=== PATIENT | female | born 1955 | race Caucasian/White ===

== ENCOUNTER 2018-03-10 15:34 | Observation (INO) ==
--- NOTE | 2018-03-10 15:36 | Emergency Department Note ---
ED Disposition Clinical Impression: Chest pain Qualifiers: Chest pain type: precordial pain Qualified Code(s): R07.2 - Precordial pain Disposition: Still a Patient Condition on Discharge: Good Referrals: Peewee Pink MD [Primary Care Provider] - - Critical Care Critical Care Time: No Attestation: On , the high probability of a clinically significant, sudden or life threatening deterioration of the following system(s) required my full and direct attention, intervention and personal management. The time I documented below is in addition to time spent performing reported procedures but includes the following listed in this critical care notation. Medical Decision Making - Francis Inquiry Pt receiving controlled substance: No Vital Signs: 03/10/18 15:34 Temperature 98.4 F Temperature Source Oral Pulse Rate [Left Radial] 67 Respiratory Rate 20 Blood Pressure [Right Arm] 99/55 Blood Pressure Mean [Right Arm] 69 Blood Pressure Source [Right Arm] Automatic Cuff Blood Pressure Position [Right Arm] Sitting 02 Sat by Pulse Oximetry 96 Oxygen Delivery Method Room Air - Lab Data Lab Results 03/10/18 15:49: WBC 6.8, RBC 4.47, Hgb 13.7, Hct 42.1, MCV 94.0, MCH 30.7, MCHC 32.6, RDW 12.9, Plt Count 320, MPV 8.1, Neut % (Auto) 46.4, Lymph % (Auto) 44.6 , [place] % (Auto) 6.8, Eos % (Auto) 1.4, Baso % (Auto) 0.8, Neut # (Auto) 3.2, Lymph # (Auto) 3.0, [place] # (Auto) 0.5, Eos # (Auto) 0.1, Baso # (Auto) 0.1 03/10/18 15:49: Sodium 144, Potassium 3.3 L, Chloride 106, Carbon Dioxide 29, Anion Gap 12.3, BUN 14, Creatinine 0.73, Estimated Creat Clear 68, Estimated GFR 81, Est GFR ( Amer) 97, Glucose 94, Calcium 8.9, Total Bilirubin 0.1 L, AST 42 H, ALT 29, Alkaline Phosphatase 98, Total Protein 7.0, Albumin 3.5, Globulin 3.5 H, Albumin/Globulin Ratio 1.0 L 03/10/18 15:49: Total Creatine Kinase 67, CK-MB (CK-2) < 0.5, CK-MB (CK-2) Rel Index 0.7, Troponin I < 0.02 03/10/18 15:49: D-Dimer < 100 Result diagrams: 03/10/18 15:49 03/10/18 15:49 - Radiology Data #1 Image(s): Chest Image Reviewed: Yes I have reviewed radiologist's interpretation COPD, no change, no acute findings - ECG Data Tracing #1 EKG interpreted by García West MD: Rhythm: sinus Rate: 70 [place]: normal Ectopy: none Conduction: normal ST Segment Changes: none T Wave Changes: none Q Waves: none No evidence of acute ischemia or injury Medical Decision Narrative: 5:25 PM: Discussed with Dr. Dubois. 5:40 PM: Remains pain-free. 5:50 PM: I have discussed the case with Dr. Lim for Dr. Pink who agrees to admit the patient to the hospital. We discussed the patient's clinical information, including history, exam, laboratory and radiology results and ED course. Per hospital procedure, I will write temporary bridge inpatient orders on the patient. Specific orders requested by the admitting physician: Admit to his service, Dr. Pink is out of town. Serial cardiac enzymes. Consult Dr. Dubois. General Adult HPI - General Stated complaint: Chest pain Time Seen by Provider: 03/10/18 16:00 - History of Present Illness HPI narrative: The patient is brought in by EMS for chest pain. She says that she was sitting in a vehicle waiting for her grandchild to get out of school when she developed chest pain in the center of her chest that radiated in a circular fashion around to her back. She says that it hurt when she tried to take a deep breath. She was not actually short of air. She was not nauseated, but was diaphoretic. The pain worsened and became 10/10. 911 was called. She said she was given aspirin and nitroglycerin. Nitroglycerin took her pain to 2/10 and now her pain is essentially gone. No previous or pain. She does not have any known heart disease. No known family history of heart disease. The patient is a smoker. She does not have hypertension, diabetes, or hyperlipidemia. Prior history of a blood clot in her leg after she had intestinal surgery 5 years ago. She says they "dissolved it in the hospital" and she did not have to take blood thinners afterwards. At that time she discovered that she was factor V Leiden. She says that she has not had a blood clot since then. - Related Data Home Medications Medication Instructions Recorded Confirmed raNITIdine HCl [Acid Director Title] 0 mg PO DAILY 03/10/18 03/10/18 Allergies Allergy/AdvReac Type Severity Reaction Status Date / Time codeine [CODEINE] Allergy Unknown NA-NAUSEA Verified 03/10/18 15:48 diphenhydramine Allergy Unknown MAKES CRAZY Verified 03/10/18 15:48 [From BENADRYL] [facility] History I have reviewed the patient's past medical history: Yes ROS Obtained: Yes All systems reviewed & no additional complaints - Constitutional Constitutional: Denies fever(s) - Cardiovascular Cardiovascular: Reports chest pain, Denies leg edema - Respiratory Respiratory: No cough, No dyspnea, No coughing up blood, Yes pain on inspiration - Gastrointestinal Gastrointestingal: Denies: abdominal pain, nausea, vomiting - Neurologic Neurologic: Denies numbness, Denies weakness Physical Exam - General General appearance: alert, in no apparent distress - Head Head exam: atraumatic, normocephalic, normal inspection - Eye Eye exam: Present: normal appearance, PERRL, EOMI - ENT ENT exam: Present: normal exam, normal oropharynx, mucous membranes moist, TM's normal bilaterally, normal external ear exam - Neck Neck exam: Present: normal inspection, full ROM, trachea midline. Absent: meningismus, lymphadenopathy - Chest Chest inspection: Present: normal inspection, symmetric chest wall rise. Absent : tenderness - Respiratory Respiratory exam: Present: normal lung sounds bilaterally. Absent: respiratory distress - Cardiovascular Cardiovascular exam: Present: regular rate, normal rhythm. Absent: JVD - Abdominal Exam Abdominal exam: Present: soft, normal bowel sounds. Absent: distention, tenderness, guarding - Extremities Exam Extremities exam: Present: normal inspection, full ROM, normal capillary refill. Absent: calf tenderness - Back Exam Back exam: Present: normal inspection. Absent: tenderness - Neurological Exam Neurological exam: Present: alert, oriented X3 - Psychiatric Psychiatric exam: Present: normal affect, normal mood - Skin Skin exam: Present: warm, dry, intact, normal color - Other Other exam information: Pulses 2+ and symmetric in all extremities
[2018-03-10 16:01] LABS: Basophils # 0.1 K/mm3 (0-0.2); Basophils % 0.8 % (0.1-2.0); Eosinophils # 0.1 K/mm3 (0.0-0.4); Eosinophils % 1.4 % (0.1-12.0); Hematocrit 42.1 % (37.0-47.0); Hemoglobin 13.7 g/dL (12.2-16.2); Lymphocytes % 44.6 K/mm3 (10-50); Mean Corpuscular HGB Conc 32.6 g/dL (31.8-35.4); Mean Corpuscular Hemoglobin 30.7 pg (27.0-31.2); Mean Platelet Volume 8.1 fl (7.4-10.4); Monocytes # 0.5 K/mm3 (0.1-1.0); Monocytes % 6.8 % (1.7-9.3); Neutrophils # 3.2 K/mm3 (1.8-7.8); Neutrophils % 46.4 % (37.0-80.0); Platelet Count 320 K/mm3 (142-424); Red Blood Count 4.47 M/mm3 (4.20-5.40); Red Cell Distribution Width 12.9 % (11.5-17.5); White Blood Count 6.8 K/mm3 (4.8-10.8)
[2018-03-10 16:14] LABS: Albumin Level 3.5 gm/dL (3.4-5.0); Anion Gap 12.3 mEq/L (5-15); Bilirubin,Total 0.1 mg/dL (0.2-1.0); Calcium 8.9 mg/dL (8.5-10.1); Globulin 3.5 gm/dl (1.3-3.2); Potassium 3.3 mmoL/L (3.5-5.1)
[2018-03-10 17:34] LABS: Creatine Kinase 67 U/L (26-192)
--- NOTE | 2018-03-11 07:27 | Pharmacy Consult Notes ---
[facility] Pharmacy VTE Monitoring - Patient Demographics Admission date: 03/10/18 Report Date: 03/11/18 Time: 07:27 Allergies/Adverse Reactions: Patient Allergies codeine [CODEINE] Allergy (Unknown, Verified 03/10/18 15:48) NA-NAUSEA diphenhydramine [From BENADRYL] Allergy (Unknown, Verified 03/10/18 15:48) MAKES CRAZY Height: 1.68 m Weight: 71.923 kg Patient Problems: Current Active Problems Chest pain (Acute) - VTE Risk Labs: VTE Related Lab Results Hgb 13.7 g/dL (12.2-16.2) 03/10/18 15:49 Hct 42.1 % (37.0-47.0) 03/10/18 15:49 Plt Count 320 K/mm3 (142-424) 03/10/18 15:49 BUN 14 mg/dL (7-18) 03/10/18 15:49 Creatinine 0.73 mg/dL (0.55-1.02) 03/10/18 15:49 Estimated Creat Clear 68 mL/min (0-300) 03/10/18 15:49 Was VTE Risk Assessment Performed: Yes VTE Score: 0 VTE Risk Level: Very Low Risk - Prophylaxis VTE Prophylaxis Ordered?: Yes Types of VTE Prophylaxis: TEDS Knee High Location of Applied Device: Bilateral Lower Extremeties - VTE Diagnosis Confirmed Treatment or plan recommended: Continue Current Treatment
--- NOTE | 2018-03-11 07:59 | Consult Report ---
History of Present Illness Consult date: 03/11/18 Requesting physician: Peewee Pink Consult reason: chest pain Chief complaint: Chest pain Additional Medical History:: 1. Tobacco use, 1 pack per day for many years 2. Denies hypertension, hyperlipidemia, diabetes mellitus or family history of heart disease. 3. History of reflux for which patient takes prescription Zantac daily. History of present illness: 63-year-old white female admitted through the emergency department for sudden onset of substernal chest discomfort yesterday while awaiting at her granddaughter's school to pick her up. Patient had associated shortness of breath nausea and diaphoresis. She denies any vomiting. She denies any recent exertional chest pain or shortness of breath. EMS was activated to transport the patient to the hospital. Symptoms had started to improve by the time EMS arrived and continued to improve over the next several hours with flatus noted. Patient was given a sublingual nitroglycerin in the ambulance but does not feel that this helped with resolution of symptoms. Cardiac enzymes remain normal overnight. EKG is sinus and unremarkable with no evidence of acute coronary syndrome. Cardiology consulted for evaluation recommendations. Patient does relate having a stress test about 6 years ago was unable to walk adequately to achieve target heart rate. [facility] History Medical History: Reports:: Gastroesophageal Reflux Disease(GERD) Laterality Cases: Bilateral: Tonsillectomy Other Surgeries: Yes: Appendectomy, Cholecystectomy, , Hysterectomy- Total - *Social History Educational Level: Completed College Smoking Status: Current every day smoker # Packs/Day (cigarettes): 1 Alcohol Intake: never Occupational Status: employed Housing: house - Psychiatric History Expresses thoughts of harming self/others: None Suicide Plan Description: No Plan Meds Home Medications Medication Instructions Recorded Confirmed Type raNITIdine HCl [Ranitidine HCl] 150 mg PO BID 03/11/18 03/11/18 History Allergies Allergy/AdvReac Type Severity Reaction Status Date / Time codeine [CODEINE] Allergy Unknown NA-NAUSEA Verified 03/10/18 15:48 diphenhydramine Allergy Unknown MAKES CRAZY Verified 03/10/18 15:48 [From BENADRYL] Review of Systems - *Cardiovascular Reports chest pain - *Respiratory Reports shortness of breath - *Gastrointestinal Reports abdominal pain - *Neurologic Denies numbness, Denies weakness Exam Vital signs and Labs for Last 24 Hours: Temp Pulse Resp BP Pulse Ox 98.3 F 71 18 135/78 97 03/11/18 07:55 03/11/18 07:55 03/11/18 07:55 03/11/18 07:55 03/11/18 07:55 Laboratory Results - last 24 hr 03/10/18 15:49: WBC 6.8, RBC 4.47, Hgb 13.7, Hct 42.1, MCV 94.0, MCH 30.7, MCHC 32.6, RDW 12.9, Plt Count 320, MPV 8.1, Neut % (Auto) 46.4, Lymph % (Auto) 44.6 , [place] % (Auto) 6.8, Eos % (Auto) 1.4, Baso % (Auto) 0.8, Neut # (Auto) 3.2, Lymph # (Auto) 3.0, [place] # (Auto) 0.5, Eos # (Auto) 0.1, Baso # (Auto) 0.1 03/10/18 15:49: Sodium 144, Potassium 3.3 L, Chloride 106, Carbon Dioxide 29, Anion Gap 12.3, BUN 14, Creatinine 0.73, Estimated Creat Clear 68, Estimated GFR 81, Est GFR ( Amer) 97, Glucose 94, Calcium 8.9, Total Bilirubin 0.1 L, AST 42 H, ALT 29, Alkaline Phosphatase 98, Total Protein 7.0, Albumin 3.5, Globulin 3.5 H, Albumin/Globulin Ratio 1.0 L 03/10/18 15:49: Total Creatine Kinase 67, CK-MB (CK-2) < 0.5, CK-MB (CK-2) Rel Index 0.7, Troponin I < 0.02 03/10/18 15:49: D-Dimer < 100 03/10/18 19:50: Troponin I < 0.02 03/10/18 22:36: Troponin I < 0.02 03/11/18 01:25: Troponin I < 0.02 I & O for Last 24 hours: Intake & Output 03/08/18 03/09/18 03/10/18 03/11/18 11:59 11:59 11:59 11:59 Intake Total Balance Weight 158 lb 9 oz - *Routine Neck Exam Absent: JVD, carotid bruit - *Routine Respiratory Exam Present: CTA bilaterally - *Routine Cardiovascular Exam Present: RRR. Absent: murmur, gallop - *Routine Abdominal Exam Present: soft. Absent: tenderness - *Routine Extremities Exam Absent: edema - *Routine Neurological Exam Present: alert, oriented X3, moving all extremities Assessment and Plan (1) Gastroesophageal reflux disease Current visit: Yes Status: Acute Category: Medical Code(s): K21.9 - Gastro -esophageal reflux disease without esophagitis (2) Chest pain Current visit: Yes Status: Acute Qualifiers: Chest pain type: precordial pain Qualified Code(s): R07.2 - Precordial pain Category: Medical Code(s): R07.9 - Chest pain, unspecified - Assessment and plan all Dx Assessment and Plan for all problems:: 1. No evidence of acute coronary syndrome by enzymes or EKG. Patient is requesting to be discharged home for outpatient workup. Recommend taking aspirin 81 mg daily and patient exercise Myoview or Lexiscan Myoview. If patient is unable to walk adequately. 2. Continue ranitidine. 3. Follow-up with cardiology as needed. 4. Smoking cessation encouraged.
--- NOTE | 2018-03-11 08:27 | H&P/Discharge Summary ---
General - General Admission date:: 03/10/18 Discharge date: 03/11/18 *Admission Date: 03/10/18 *Chief complaint: CP *History of present illness: Ms. Presley is a 63-year-old white female who was admitted through the emergency department for a sudden onset of substernal chest pain yesterday while waiting to pick up attendant her granddaughter at school. She had some shortness of breath, nausea, and diaphoresis. She states it felt like someone put a band around her waist. She denies any vomiting. She denies any recent exertional chest pain or shortness of breath. She was unable to drive to the ER d/t the pain so EMS was activated to transport the patient to the hospital. Symptoms had started to improve by the time EMS arrived and continued to improve over the next several hours. Patient was given a sublingual nitroglycerin in the ambulance but does not feel that this helped with resolution of symptoms. She states it only gave her a headache. She feels the pain was d/t gas as she has passed a lot of flatus since admission. Cardiac enzymes have remained normal overnight. EKG was unremarkable with no evidence of acute coronary syndrome. Cardiology was consulted for evaluation recommendations. The patient does state she had a stress test about 6 years ago and was unable to walk adequately to achieve target heart rate. [facility] History Medical History: Reports:: Cancer (cervical), Chronic Obstructive Pulmonary Disease (COPD), Gastroesophageal Reflux Disease(GERD) Comment: Factor V Leiden with post op DVT of the RLE Sep 2012, Vitamin D Deficiency Laterality Cases: Bilateral: Tonsillectomy Other Surgeries: Yes: Appendectomy, Cholecystectomy, , Hysterectomy- Total - *Social History Educational Level: Completed College Smoking Status: Former smoker # Packs/Day (cigarettes): 1 Alcohol Intake: never Occupational Status: employed Housing: house - Psychiatric History Expresses thoughts of harming self/others: None Suicide Plan Description: No Plan *Family Hx:: Cancer (melanoma), Hypertension Review of Systems - Constitutional Denies body ache(s), Denies chills, Denies fever(s), Denies headache(s) - Eyes Denies blurry vision, Denies double vision - ENT Denies nasal congestion, Denies sore throat - *Cardiovascular Reports chest pain (resolved), Reports shortness of breath (resolved) - *Respiratory Denies cough - *Gastrointestinal Reports belching, Reports bloating, Reports nausea, Denies abdominal pain, Denies vomiting - *Genitourinary Denies difficulty urinating, Denies painful urination - *Musculoskeletal Denies joint pain, Denies body aches - *Neurologic Denies numbness, Denies dizziness, Denies weakness Exam Vital signs and Labs for Last 24 Hours: Temp Pulse Resp BP Pulse Ox 98.3 F 71 18 135/78 97 03/11/18 07:55 03/11/18 07:55 03/11/18 07:55 03/11/18 07:55 03/11/18 07:55 Laboratory Results - last 24 hr 03/10/18 15:49: WBC 6.8, RBC 4.47, Hgb 13.7, Hct 42.1, MCV 94.0, MCH 30.7, MCHC 32.6, RDW 12.9, Plt Count 320, MPV 8.1, Neut % (Auto) 46.4, Lymph % (Auto) 44.6 , [place] % (Auto) 6.8, Eos % (Auto) 1.4, Baso % (Auto) 0.8, Neut # (Auto) 3.2, Lymph # (Auto) 3.0, [place] # (Auto) 0.5, Eos # (Auto) 0.1, Baso # (Auto) 0.1 03/10/18 15:49: Sodium 144, Potassium 3.3 L, Chloride 106, Carbon Dioxide 29, Anion Gap 12.3, BUN 14, Creatinine 0.73, Estimated Creat Clear 68, Estimated GFR 81, Est GFR ( Amer) 97, Glucose 94, Calcium 8.9, Total Bilirubin 0.1 L, AST 42 H, ALT 29, Alkaline Phosphatase 98, Total Protein 7.0, Albumin 3.5, Globulin 3.5 H, Albumin/Globulin Ratio 1.0 L 03/10/18 15:49: Total Creatine Kinase 67, CK-MB (CK-2) < 0.5, CK-MB (CK-2) Rel Index 0.7, Troponin I < 0.02 03/10/18 15:49: D-Dimer < 100 03/10/18 19:50: Troponin I < 0.02 03/10/18 22:36: Troponin I < 0.02 03/11/18 01:25: Troponin I < 0.02 I & O for Last 24 hours: Intake & Output 03/08/18 03/09/18 03/10/18 03/11/18 11:59 11:59 11:59 11:59 Intake Total Balance Weight 158 lb 9 oz - Constitutional no acute distress - *Routine HEENT Exam Head: Present: normocephalic, atraumatic Eye: Present: EOMI, PERRL ENT: Present: mucous membranes moist - *Routine Neck Exam Present: supple, full ROM - *Routine Respiratory Exam Present: CTA bilaterally - *Routine Cardiovascular Exam Present: RRR - *Routine Abdominal Exam Present: soft, normoactive bowel sounds. Absent: tenderness - *Routine Extremities Exam Absent: edema - *Routine Skin Exam Present: intact - *Routine Neurological Exam Present: alert, oriented X3 Hospital Course Hospital Course: The patient's pain resolved after passing flatus. She felt fine by the morning of 03/11/18 and wanted to go home. Her cardiac enzymes were all normal and her EKG was normal. Cardiology saw the patient and felt she was stable to be discharged home but will need a stress test on an outpatient basis. She will also need to take an 81 mg aspirin on a regular basis. Results Labs on day of discharge: Labs from last 24 hours 03/11/18 03/10/18 03/10/18 01:25 22:36 19:50 WBC RBC Hgb Hct MCV MCH MCHC RDW Plt Count MPV Neut % (Auto) Lymph % (Auto) [place] % (Auto) Eos % (Auto) Baso % (Auto) Neut # (Auto) Lymph # (Auto) [place] # (Auto) Eos # (Auto) Baso # (Auto) D-Dimer Sodium Potassium Chloride Carbon Dioxide Anion Gap BUN Creatinine Estimated Creat Clear Estimated GFR Est GFR ( Amer) Glucose Calcium Total Bilirubin AST ALT Alkaline Phosphatase Total Creatine Kinase CK-MB (CK-2) CK-MB (CK-2) Rel Index Troponin I < 0.02 < 0.02 < 0.02 Total Protein Albumin Globulin Albumin/Globulin Ratio 03/10/18 03/10/18 03/10/18 15:49 15:49 15:49 WBC RBC Hgb Hct MCV MCH MCHC RDW Plt Count MPV Neut % (Auto) Lymph % (Auto) [place] % (Auto) Eos % (Auto) Baso % (Auto) Neut # (Auto) Lymph # (Auto) [place] # (Auto) Eos # (Auto) Baso # (Auto) D-Dimer < 100 Sodium 144 Potassium 3.3 L Chloride 106 Carbon Dioxide 29 Anion Gap 12.3 BUN 14 Creatinine 0.73 Estimated Creat Clear 68 Estimated GFR 81 Est GFR ( Amer) 97 Glucose 94 Calcium 8.9 Total Bilirubin 0.1 L AST 42 H ALT 29 Alkaline Phosphatase 98 Total Creatine Kinase 67 CK-MB (CK-2) < 0.5 CK-MB (CK-2) Rel Index 0.7 Troponin I < 0.02 Total Protein 7.0 Albumin 3.5 Globulin 3.5 H Albumin/Globulin Ratio 1.0 L 03/10/18 15:49 WBC 6.8 RBC 4.47 Hgb 13.7 Hct 42.1 MCV 94.0 MCH 30.7 MCHC 32.6 RDW 12.9 Plt Count 320 MPV 8.1 Neut % (Auto) 46.4 Lymph % (Auto) 44.6 [place] % (Auto) 6.8 Eos % (Auto) 1.4 Baso % (Auto) 0.8 Neut # (Auto) 3.2 Lymph # (Auto) 3.0 [place] # (Auto) 0.5 Eos # (Auto) 0.1 Baso # (Auto) 0.1 D-Dimer Sodium Potassium Chloride Carbon Dioxide Anion Gap BUN Creatinine Estimated Creat Clear Estimated GFR Est GFR ( Amer) Glucose Calcium Total Bilirubin AST ALT Alkaline Phosphatase Total Creatine Kinase CK-MB (CK-2) CK-MB (CK-2) Rel Index Troponin I Total Protein Albumin Globulin Albumin/Globulin Ratio - Impressions CXR - COPD, nothing acute DS: Diagnosis - Discharge Diagnosis (1) Chest pain Status: Resolved (2) Gastroesophageal reflux disease Status: Chronic (3) COPD (chronic obstructive pulmonary disease) Status: Chronic Discharge Medications Discharge Medications: Home Medications Medication Instructions Recorded Confirmed Type raNITIdine HCl [Ranitidine HCl] 150 mg PO BID 03/11/18 03/11/18 History Disposition Disposition: Home, Self-Care
== END 2018-03-11 09:30 | disposition home or self-care (01) ==
LOC: ER 15:34 → 2ND 15:34
PROVIDERS: ADMIT Family Medicine; ATTEND Family Medicine

== ENCOUNTER → 2018-04-13 06:15 | Outpatient (CLI) | payer BC, SELFPAY ==
--- NOTE | 2018-04-13 | NM_ITS ---
CARDIOLITE SPECT MYOCARDIAL PERFUSION SCAN, REST AND STRESS: EXERCISE STRESS [facility] REVIEW QGS EF AND WALL MOTION EVALUATION: QPS - PERFUSION EVALUATION HISTORY: Chest pain, Tobacco use DOSE: 10.62 mCi technetium 99m mibi intravenously at rest followed by 31.1 mCi technetium 99m mibi following the intravenous ministration of 0.4 mg of Lexiscan. Resting blood pressure is 147/76. Stress blood pressure 124/60. FINDINGS: Ejection fraction is calculated to be 65%. Stress images reveal decreased activity in the mid anterior apical wall and septal and portion of the inferior wall. Rest images reveal improved activity in the anterior wall with worsening activity in the septum and probably improved activity in the inferior wall. Gated images calculated ejection fraction of 65% with abnormal anterior and septal bounce consistent with conduction defect. IMPRESSION: Clinical correlation is advised. This is a high risk abnormal stress test with multiple areas of ischemia as well as evidence of reverse redistribution. Normal ejection fraction with regional wall motion abnormalities
== END ==
PROVIDERS: Family Provider Family Medicine; PCP Family Medicine; Visit Provider Family Medicine
DX: R07.9 Chest pain, unspecified (principal)
CPT/HCPCS: 78452; 93017; A9502; J2785

== ENCOUNTER → 2018-04-15 07:37 | Outpatient (CLI) | payer BC, SELFPAY ==
[2018-04-15 08:47] LABS: Anion Gap 11.1 mEq/L (5-15); Blood Urea Nitrogen 19 mg/dL (7-18); Carbon Dioxide 29 mmol/L (21.0-32.0); Chloride 106 mmol/L (98-107); Creatinine,Serum 0.65 mg/dL (0.55-1.02); Estimated Glomerular Filt Rate 92 ml/min (>60); GFR (African American) 111 ML/MIN (>60); Glucose 90 mg/dL (74-106); Potassium 4.1 mmoL/L (3.5-5.1); Sodium 142 mmol/L (136-145)
== END ==
PROVIDERS: Visit Provider Family Medicine
DX: N28.9 Disorder of kidney and ureter, unspecified (principal)
CPT/HCPCS: 36415; 80048

== ENCOUNTER → 2018-05-27 07:18 | Outpatient (CLI) | payer BC, SELFPAY ==
[2018-05-27 08:04] LABS: Blood Urea Nitrogen 17 mg/dL (7-18); Calcium 9.3 mg/dL (8.5-10.1); Carbon Dioxide 29 mmol/L (21.0-32.0); Chloride 106 mmol/L (98-107); Creatinine,Serum 0.73 mg/dL (0.55-1.02); Estimated Glomerular Filt Rate 81 ml/min (>60); GFR (African American) 97 ML/MIN (>60); Glucose 89 mg/dL (74-106); Sodium 144 mmol/L (136-145)
== END ==
PROVIDERS: Visit Provider Internal Medicine Cardiovascular Disease
DX: R07.89 Other chest pain (principal); R94.31 Abnormal electrocardiogram [ECG] [EKG]; K21.9 Gastro-esophageal reflux disease without esophagitis; F17.200 Nicotine dependence, unspecified, uncomplicated
CPT/HCPCS: 36415; 80048

== ENCOUNTER → 2018-06-14 12:50 | Outpatient (CLI) | payer BC, SELFPAY ==
--- NOTE | 2018-06-14 12:52 | CA_ITS ---
PROCEDURE: 2-D M-mode and color Doppler study INDICATIONS FOR THE TEST: Chest painXX COPD Heart Murmur Tobacco SmokingX Palpitations Fatigue Syncope Edema Hypertension Diabetes Mellitus Rheumatic Fever SOBXDOE Obesity HyperlipidemiaX Family History HD Additional History PATIENT INFORMATION HEIGHT: 65 WEIGHT:167 GENDER: Female B/P:138/65 2-D/M-MODE INTERPRETATION: 2-D MEASUREMENTS OBSERVED VALUES IN CMS Right Ventricular Dimension (RVDd) 2.0 Interventricular Septum (Thickness)(IVsd) .9 Left Ventricular Internal Dimensions(LVIDd) 5.6 Left Ventricular Posterior Wall (Thickness)(LVPWd) 1.0 Aortic Root 3.0 Aortic Cusp Separation 1.9 Left Atrial Dimensions (LAD) 3.0 2D 1. Left atrium is qualitatively mildly enlarged, left ventricle is normal size, visually estimated ejection fraction 55% with no obvious regional wall motion abnormality. 2. The right atrium and right ventricle are mildly enlarged with normal contractility. 3. The aortic valve is minimally thickened and fibrosed. 4. The mitral and tricuspid valve are grossly normal. 5. The pulmonic valve is poorly visualized. 6. No significant pericardial effusion noted. DOPPLER INTERROGATION: Doppler interrogation of the aortic, mitral and tricuspid valvular presence of mild mitral and tricuspid regurgitation, tricuspid and jet velocity is insufficient for calculation of the right ventricular systolic pressure, grade 1 diastolic dysfunction seen with tissue Doppler evidence of raised left atrial pressure. CONCLUSION: 1. Mildly enlarged left atrium, normal left ventricular size, visually estimated ejection fraction of 55% with no obvious regional wall motion abnormality, grade 1 diastolic dysfunction seen with tissue Doppler evidence of raised left atrial pressure. 2. Mildly enlarged right ventricle with normal contractility. 3. Mild mitral and tricuspid regurgitation 4. No significant pericardial effusion noted.
== END ==
PROVIDERS: Family Provider Family Medicine; PCP Family Medicine; Visit Provider Internal Medicine
DX: R94.31 Abnormal electrocardiogram [ECG] [EKG] (principal); R07.89 Other chest pain; K21.9 Gastro-esophageal reflux disease without esophagitis; F17.200 Nicotine dependence, unspecified, uncomplicated
CPT/HCPCS: 93306

== ENCOUNTER → 2018-08-10 08:19 | Outpatient (CLI) | payer BC, SELFPAY ==
--- NOTE | 2018-08-10 08:20 | MM_ITS ---
MM Dig screening mamm BI w/CAD ORDERING PHYSICIAN : Peewee Pink MD PATIENT AGE: 63 years GENDER: Female COMPARISON: January 2017, December 2015. October 2014 INDICATION: ITS.REASON: SCREENING no hormones. No new complaints Family history paternal aunt with breast cancer age 50 TECHNIQUE: Standard CC and MLO images were obtained. R2 CAD reviewed. FINDINGS: Lower density breast with minimal residual fibroglandular elements with otherwise moderate fatty replacement No suspicious mass no dominant mass nor suspicious calcifications in either breast. No architectural distortion. No significant new findings Right breast. Subtle area of nodularity at lateral breast is similar to previous studies. No new areas of concern. Follow-up one year. Left breast. Area of density deep breast on MLO view is similar to a 2013 & 2011 mammogram left MLO. Follow-up in one year adequate CAD computer review highlights no areas of concern either. Follow-up in one year adequate IMPRESSION: . Stable bilateral mammogram. No significant new findings Follow-up in one year BI-RADS Category: 2 Benign Finding(s) RECOMMENDED FOLLOW-UP: 1YR 1 YEAR FOLLOW-UP (A letter has been sent to the patient regarding results of the study.)
== END ==
PROVIDERS: Family Provider Family Medicine; PCP Family Medicine; Visit Provider Family Medicine
DX: Z12.31 Encounter for screening mammogram for malignant neoplasm of breast (principal)
CPT/HCPCS: 77067

== ENCOUNTER → 2018-12-22 12:44 | Outpatient (CLI) | payer BC, SELFPAY ==
--- NOTE | 2018-12-22 12:50 | CT_ITS ---
CT lung screening EXAM: CT LUNG LOW DOSE WO CONTRAST HISTORY: 60 pack-year smoking history, asymptomatic for lung cancer ITS.REASON: H/O NICOTINE DEPENDENCE ORDERING PHYSICIAN: Peewee Pink MD PATIENT AGE: 63 years COMPARISON: None TECHNIQUE: The exam was performed on a GE Light Speed [address] scanner using 2.90 mGy CTDI. A low dose helical CT CHEST was performed on a multi-detector scanner. All CT scans at the facility use one or more dose reduction, viz: automated exposure control, ma/kV adjustment per patient size (including targeted exams where dose is matched to indication, i.e. head), or iterative reconstruction technique. The LDCT was performed in a facility that meets the criteria for the screening program. Data regarding this exam was submitted to ACR which is an approved registry. The order for this exam indicates that it came as a result of a lung cancer screening counseling shard decision-making visit that included all the elements required of such a visit including smoking cessation. The radiologist interpreting this exam meets the CMS criteria for the LDCT lung cancer screening program. The exam is reported using the Lung-RADS classification scale and reported to the ACR registry. NOTE: This study was performed for the specific purposes of lung cancer screening and is not an alternative to diagnostic chest CT. RADIATION DOSE: CTDI vol(CT dose Index-volume) = 2.90mG DLP (Dose Length Product) = 110.08 mGcm FINDINGS: There is biapical pleural thickening. Paraseptal and centrilobular emphysematous changes are present. Calcified granuloma right upper lobe posteriorly. No suspicious nodules.. Calcified nodes are present in the right hilum. IMPRESSION: 1. Lung RADS Category: 2, benign 2. Other findings: Old granulomatous disease RECOMMENDATIONS: 12 month LDCT follow-up
== END ==
PROVIDERS: PCP Family Medicine; Visit Provider Family Medicine
DX: Z12.2 Encounter for screening for malignant neoplasm of respiratory organs (principal); Z87.891 Personal history of nicotine dependence

== ENCOUNTER → 2019-01-11 07:22 | Outpatient (CLI) | payer BC, SELFPAY ==
[2019-01-11 08:06] LABS: Alanine Aminotransferase 19 U/L (12-78); Albumin Level 3.7 gm/dL (3.4-5.0); Alkaline Phosphatase 98 U/L (46-116); Aspartate Amino Transferase 12 U/L (15-37); Bilirubin,Direct 0.1 mg/dL (0.0-0.2); Bilirubin,Indirect 0.4 mg/dL (0.0-0.9); Bilirubin,Total 0.5 mg/dL (0.2-1.0); Chol/HDL Ratio 4.6 (1-3.5); Cholesterol 196 mg/dL (140-200); HDL Cholesterol 43 mg/dL (29-89); LDL Cholesterol 132 mg/dL (0-130); Total Protein,Serum 6.8 gm/dL (6.4-8.2); Triglycerides 105 mg/dL (30-200); VLDL Cholesterol 21 mg/dL (0-40)
== END ==
PROVIDERS: Visit Provider Internal Medicine Cardiovascular Disease
DX: K21.9 Gastro-esophageal reflux disease without esophagitis (principal); I51.89 Other ill-defined heart diseases; E66.9 Obesity, unspecified
CPT/HCPCS: 36415; 80061; 80076

== ENCOUNTER → 2019-04-14 07:07 | Outpatient (CLI) | payer BC, SELFPAY ==
[2019-04-14 09:29] LABS: Alanine Aminotransferase 26 U/L (12-78); Albumin Level 3.6 gm/dL (3.4-5.0); Albumin/Globulin Ratio 1.2 (1.1-1.8); Alkaline Phosphatase 88 U/L (46-116); Anion Gap 11.1 mEq/L (5-15); Aspartate Amino Transferase 11 U/L (15-37); Bilirubin,Total 0.5 mg/dL (0.2-1.0); Blood Urea Nitrogen 12 mg/dL (7-18); Carbon Dioxide 29 mmol/L (21.0-32.0); Chloride 108 mmol/L (98-107); Chol/HDL Ratio 2.9 (1-3.5); Cholesterol 129 mg/dL (140-200); Creatinine,Serum 0.76 mg/dL (0.55-1.02); Estimated Glomerular Filt Rate 77 ml/min (>60); Ferritin 53 ng/mL (8-388); GFR (African American) 93 ML/MIN (>60); Globulin 2.9 gm/dl (1.3-3.2); Glucose 81 mg/dL (74-106); HDL Cholesterol 45 mg/dL (29-89); LDL Cholesterol 70 mg/dL (0-130); Potassium 5.1 mmoL/L (3.5-5.1); Sodium 143 mmol/L (136-145); Thyroid Stimulating Hormone 1.92 uIU/ml (0.358-3.740); Total Protein,Serum 6.5 gm/dL (6.4-8.2); Triglycerides 69 mg/dL (30-200); VLDL Cholesterol 14 mg/dL (0-40)
[2019-04-15 07:35] LABS: Vitamin D 25 Hydroxy 26.3 ng/mL (30.0-100.0)
== END ==
PROVIDERS: Visit Provider Family Medicine
DX: E78.00 Pure hypercholesterolemia, unspecified (principal); G25.81 Restless legs syndrome; E55.9 Vitamin D deficiency, unspecified
CPT/HCPCS: 36415; 80053; 80061; 82652; 82728; 84443

== ENCOUNTER → 2019-09-05 08:47 | Outpatient (CLI) | payer BC, SELFPAY ==
--- NOTE | 2019-09-05 08:50 | MM_ITS ---
PROCEDURE: MM DIG SCREENING MAMM BI W/CAD Patient Age:64Y CLINICAL INDICATION: SCREENING No hormones. No new complaints. Family history: Paternal aunt with breast cancer age 50 COMPARISON: SCREENING MAMMO DIGITAL W/ CAD from 02/12/2011 SCREENING MAMMO DIGITAL W/ CAD from 02/16/2012 [facility] DIG MAMM-SCREEN TONYA from 10/10/2013 [facility] DIG MAMM-SCREEN TONYA from 10/17/2014 [facility] DIG MAMM-SCREEN TONYA from 12/17/2015 [facility] DIG MAMM-SCREEN TONYA W/CAD from 02/02/2017 [facility] MM Dig screening mamm BI w/CAD from 08/10/2018 TECHNIQUE: Standard CC and MLO images were obtained. R2 CAD reviewed. FINDINGS: [id number] residual fibroglandular elements with distribution mainly towards upper outer quadrant of both breasts.. No new dominant or suspicious mass. No suspicious calcifications overall. No significant change since multiple prior comparison studies. Stable minor asymmetry areas of density. Bilateral follow-up 1 year recommended IMPRESSION: Stable mammogram with no new areas of significant concern. Bilateral follow-up in 1 year recommended BI-RAD Category: 2 Benign Finding(s) FOLLOW-UP: 1YR 1 Year Follow-up (A letter has been sent to the patient regarding results of the study.) Dictated by: Rasheed Kelly MD 09/06/2019 10:30 Electronically signed by Rasheed Kelly MD in [place] 09/06/2019 10:30
== END ==
PROVIDERS: PCP Family Medicine; Visit Provider Family Medicine
DX: Z12.31 Encounter for screening mammogram for malignant neoplasm of breast (principal)
CPT/HCPCS: 77067

== ENCOUNTER → 2019-10-04 07:28 | Outpatient (CLI) | payer BC, SELFPAY ==
[2019-10-04 08:13] LABS: Basophils # 0.1 K/mm3 (0-0.2); Basophils % 1.1 % (0.1-2.0); Eosinophils # 0.1 K/mm3 (0.0-0.4); Eosinophils % 1.7 % (0.1-12.0); Hematocrit 40.1 % (37.0-47.0); Hemoglobin 12.8 g/dL (12.2-16.2); Lymphocytes # 1.9 K/mm3 (0.7-4.5); Lymphocytes % 35.5 % (10-50); Mean Corpuscular HGB Conc 31.8 g/dL (31.8-35.4); Mean Corpuscular Hemoglobin 30.7 pg (27.0-31.2); Mean Corpuscular Volume 96.4 fl (81-99); Mean Platelet Volume 8.3 fl (7.4-10.4); Monocytes # 0.3 K/mm3 (0.1-1.0); Monocytes % 6.1 % (1.7-9.3); Neutrophils # 2.9 K/mm3 (1.8-7.8); Neutrophils % 55.7 % (37.0-80.0); Platelet Count 302 K/mm3 (142-424); Red Blood Count 4.16 M/mm3 (4.20-5.40); Red Cell Distribution Width 13.3 % (11.5-17.5); White Blood Count 5.2 K/mm3 (4.8-10.8)
[2019-10-04 09:17] LABS: Alanine Aminotransferase 25 U/L (12-78); Albumin Level 3.8 gm/dL (3.4-5.0); Albumin/Globulin Ratio 1.3 (1.1-1.8); Alkaline Phosphatase 82 U/L (46-116); Aspartate Amino Transferase 20 U/L (15-37); Bilirubin,Total 0.4 mg/dL (0.2-1.0); Blood Urea Nitrogen 17 mg/dL (7-18); Carbon Dioxide 30 mmol/L (21.0-32.0); Chloride 107 mmol/L (98-107); Chol/HDL Ratio 2.8 (1-3.5); Cholesterol 142 mg/dL (140-200); Creatinine,Serum 0.67 mg/dL (0.55-1.02); Estimated Glomerular Filt Rate 89 ml/min (>60); GFR (African American) 107 ML/MIN (>60); Glucose 85 mg/dL (74-106); HDL Cholesterol 50 mg/dL (29-89); LDL Cholesterol 78 mg/dL (0-130); Sodium 142 mmol/L (136-145); Total Protein,Serum 6.8 gm/dL (6.4-8.2); Triglycerides 72 mg/dL (30-200); VLDL Cholesterol 14 mg/dL (0-40)
[2019-10-05 10:25] LABS: Vitamin D 25 Hydroxy 43.7 ng/mL (30.0-100.0)
== END ==
PROVIDERS: Visit Provider Physician Assistant
DX: E78.00 Pure hypercholesterolemia, unspecified (principal); E55.9 Vitamin D deficiency, unspecified; K12.2 Cellulitis and abscess of mouth
CPT/HCPCS: 36415; 80053; 80061; 82652; 85025

== ENCOUNTER → 2020-09-19 07:49 | Outpatient (CLI) | payer MEDICARE, SELFPAY ==
[2020-09-19 09:42] LABS: Alanine Aminotransferase 17 U/L (12-78); Albumin Level 4.3 g/dl (3.5-5.0); Albumin/Globulin Ratio 1.7 (1.1-1.8); Alkaline Phosphatase 85 U/L (38-126); Anion Gap 12.5 mEq/L (5-15); Aspartate Amino Transferase 29 U/L (14-36); Bilirubin,Total 0.5 mg/dl (0.2-1.3); Blood Urea Nitrogen 15 mg/dl (7-17); Carbon Dioxide 28 mmol/L (22.0-30.0); Chloride 105 mmol/L (98-107); Estimated Glomerular Filt Rate 84 ml/min (>60); GFR (African American) 102 ML/MIN (>60); Globulin 2.6 g/dL (1.3-3.2); Glucose 97 mg/dl (74-100); HDL Cholesterol 55 mg/dl (40-60); Potassium 4.5 mmoL/L (3.5-5.1); Sodium 141 mmol/L (136-145); Total Protein,Serum 6.9 g/dl (6.3-8.2)
[2020-09-19 09:44] LABS: Chol/HDL Ratio 2.9 (1-3.5); Cholesterol 159 mg/dl (140-200); Triglycerides 90 mg/dl (30-150); VLDL Cholesterol 18 mg/dL (0-40)
[2020-09-19 09:53] LABS: Direct LDL Cholesterol 86.48 mg/dL (100-129)
[2020-09-19 10:01] LABS: 25-OH Vitamin D, Total 54.9 ng/mL (30-100)
[2020-09-19 10:15] LABS: Thyroid Stimulating Hormone 2.52 uIU/mL (0.465-4.68)
== END ==
PROVIDERS: Visit Provider Family Medicine
DX: E78.00 Pure hypercholesterolemia, unspecified (principal); E55.9 Vitamin D deficiency, unspecified
CPT/HCPCS: 36415; 80053; 80061; 82306; 84443

== ENCOUNTER → 2020-09-25 07:49 | Outpatient (CLI) | payer MEDICARE, SELFPAY ==
--- NOTE | 2020-09-25 07:53 | CT_ITS ---
PROCEDURE: CT LUNG SCREENING CLINICAL INDICATION: H/O NICOTINE DEPENDENCE Former smoker Quit 1 year ago 60 pack year smoking history COMPARISON: CT LUNGSCREEN CT lung screening from 12/22/2018 TECHNIQUE: The exam was performed on a GE [employer] Speed [address] scanner using 2.90 mGy CTDI. A low dose helical CT CHEST was performed on a multi-detector scanner. All CT scans at the facility use one or more dose reduction, viz: automated exposure control, ma/kV adjustment per patient size (including targeted exams where dose is matched to indication, i.e. head), or iterative reconstruction technique. The LDCT was performed in a facility that meets the criteria for the screening program. Data regarding this exam was submitted to ACR which is an approved registry. The order for this exam indicates that it came as a result of a lung cancer screening counseling shard decision-making visit that included all the elements required of such a visit including smoking cessation. The radiologist interpreting this exam meets the CMS criteria for the LDCT lung cancer screening program. The exam is reported using the Lung-RADS classification scale and reported to the ACR registry. NOTE: This study was performed for the specific purposes of lung cancer screening and is not an alternative to diagnostic chest CT. RADIATION DOSE: CTDI vol(CT dose Index-volume) = 2.90mG DLP (Dose Length Product) = 103.94 mGcm FINDINGS: COPD changes with paraseptal emphysema biapical scarring with evidence of old granulomatous disease. No suspicious nodules. There is a 3 mm subpleural nodule in the left apex posteriorly unchanged. OTHER FINDINGS: No other pertinent findings evident. IMPRESSION: Lung-RADS Category 2 Benign Appearance or Behavior Follow-up: Continue annual screening with LDCT in 12 months Dictated by: Florencio Woodruff MD 09/30/2020 11:27 Florencio Woodruff MD in [place] 09/30/2020 11:27
--- NOTE | 2020-09-25 07:54 | US_ITS ---
PROCEDURE: US ABD. AORTA SCREENING CLINICAL INDICATION: AAA Screening for aneurysm COMPARISON: US RUQ US RUQ-(ABD LTD)1ORGAN/QUAD/FU from 05/26/2016 FINDINGS: No evidence of aortic aneurysm. The IMPRESSION: No evidence of abdominal aortic aneurysm Dictated by: Florencio Woodruff MD 09/25/2020 09:28 Florencio Woodruff MD in [place] 09/25/2020 09:28
--- NOTE | 2020-09-25 07:55 | XR_ITS ---
PROCEDURE: XR DEXA AXIAL SKELETON CLINICAL HISTORY: POST MENOPAUSAL COMPARISON: No exams were available for comparison FINDINGS: The right hip BMD is 0.583 with a T-score of -2.4. The left hip BMD is 0.605 with a T-score of -2.8. The lumbar spine BMD is 0.784 with a T-score of -2.4. IMPRESSION: This patient is considered osteoporotic according to the World Health Organization criteria. Fracture risk is high. Treatment is advised. Based on these results a follow-up exam is recommended in 1 year. Dictated by: Florencio Woodruff MD 09/26/2020 08:27 Florencio Woodruff MD in [place] 09/26/2020 08:27
--- NOTE | 2020-09-25 07:55 | MM_ITS ---
PROCEDURE: MM DIG SCREENING MAMM BI W/CAD Digital Breast Tomosynthesis Included CLINICAL INDICATION: SCREENING There is a history of breast cancer in the patient's paternal aunt diagnosed at age 50. COMPARISON: MG [facility] DIG MAMM-SCREEN TONYA W/CAD from 02/02/2017 [facility] MM Dig screening mamm BI w/CAD from 08/10/2018 MG MM DIG SCREENING MAMM BI W/CAD from 09/05/2019 TECHNIQUE: Standard CC and MLO images and 3D Tomosynthesis was obtained. R2 CAD reviewed. FINDINGS: Scattered fibroglandular densities are seen throughout both breast and the findings are fairly symmetrical bilaterally. There are 2 mole markers right breast. There is a single mole marker left breast. There is no suspicious lesion in either breast and no suspicious microcalcifications. IMPRESSION: Fibrofatty parenchyma with no suspicious lesions seen BI-RAD Category: 2 Benign Finding(s) FOLLOW-UP: 1YR 1 Year Follow-up (A letter has been sent to the patient regarding results of the study.) Dictated by: Dr. Refugio Hawley MD 09/26/2020 19:01 Dr. Refugio Hawley MD in [place] 09/26/2020 19:01
== END ==
PROVIDERS: PCP Family Medicine; Visit Provider Family Medicine
DX: Z12.31 Encounter for screening mammogram for malignant neoplasm of breast (principal); Z13.820 Encounter for screening for osteoporosis; Z13.6 Encounter for screening for cardiovascular disorders; Z82.49 Family history of ischemic heart disease and other diseases of the circulatory system; Z12.2 Encounter for screening for malignant neoplasm of respiratory organs; Z87.891 Personal history of nicotine dependence; Z78.0 Asymptomatic menopausal state
CPT/HCPCS: 76705; 77063; 77067; 77080

== ENCOUNTER → 2021-04-10 13:34 | Outpatient (POV) | payer MEDICARE, SELFPAY | DX: Z00.00 Encounter for general adult medical examination without abnormal findings (principal) ==

== ENCOUNTER → 2021-09-26 09:34 | Outpatient (CLI) | payer MEDICARE, SELFPAY ==
--- NOTE | 2021-09-26 09:37 | MM_ITS ---
PROCEDURE INFORMATION: Exam: MG Bilateral Screening 3D Mammography Exam date and time: 09/26/2021 9:37 AM Age: 66 years old Clinical indication: Screening exam; Family history of breast cancer TECHNIQUE: Imaging protocol: Bilateral screening tomosynthesis and 2D mammography including computer-aided detection (CAD) when performed. COMPARISON: 1. MG MM DIG SCREENING MAMM BI W/CAD 09/25/2020 8:39 AM 2. MG MM DIG SCREENING MAMM BI W/CAD 09/05/2019 9:09 AM FINDINGS: MAMMOGRAPHY: Breast composition: The breast tissue is composed of scattered areas of fibroglandular density. Mass: None. Architectural distortion: None. Calcifications: No suspicious calcifications. Asymmetric density: None. Skin thickening: None. Axillary adenopathy: None. IMPRESSION: No mammographic evidence of malignancy. Annual screening is recommended unless otherwise clinically indicated. ASSESSMENT: BI-RADS Category 1: Negative
--- NOTE | 2021-09-26 09:37 | CT_ITS ---
PROCEDURE: CT LUNG SCREENING CLINICAL INDICATION: HX OF NICOTINE DEPENDENCE COMPARISON: CT CT LUNG SCREENING from 09/25/2020 TECHNIQUE: The exam was performed on a GE Light Speed [address] scanner using 2.90 mGy CTDI. A low dose helical CT CHEST was performed on a multi-detector scanner. All CT scans at the facility use one or more dose reduction, viz: automated exposure control, ma/kV adjustment per patient size (including targeted exams where dose is matched to indication, i.e. head), or iterative reconstruction technique. The LDCT was performed in a facility that meets the criteria for the screening program. Data regarding this exam was submitted to ACR which is an approved registry. The order for this exam indicates that it came as a result of a lung cancer screening counseling shard decision-making visit that included all the elements required of such a visit including smoking cessation. The radiologist interpreting this exam meets the CMS criteria for the LDCT lung cancer screening program. The exam is reported using the Lung-RADS classification scale and reported to the ACR registry. NOTE: This study was performed for the specific purposes of lung cancer screening and is not an alternative to diagnostic chest CT. RADIATION DOSE: CTDI vol(CT dose Index-volume) = 2.90mG DLP (Dose Length Product) = 101.07 mGcm FINDINGS: COPD paraseptal emphysematous changes and scattered areas of scarring. There is scattered small subpleural and parenchymal opacities unchanged. Evidence of old granulomatous disease. No suspicious pulmonary nodules identified. OTHER FINDINGS: 8 mm hypodensity right hepatic lobe posteriorly segment 7 unchanged IMPRESSION: Lung-RADS Category 2 Benign Appearance or Behavior Follow-up: Continue annual screening with LDCT in 12 months Dictated by: Florencio Woodruff MD 10/05/2021 06:47 Florencio Woodruff MD in [place] 10/05/2021 06:47
== END ==
PROVIDERS: PCP Family Medicine; Visit Provider Family Medicine
DX: Z12.31 Encounter for screening mammogram for malignant neoplasm of breast (principal); Z87.891 Personal history of nicotine dependence; Z12.2 Encounter for screening for malignant neoplasm of respiratory organs
CPT/HCPCS: 71271; 77063; 77067

== ENCOUNTER → 2021-11-06 11:15 | Outpatient (CLI) | payer MEDICARE, SELFPAY ==
[2021-11-06 12:00] LABS: Chloride 105 mmol/L (98-107)
[2021-11-06 12:01] LABS: Potassium 4.6 mmoL/L (3.5-5.1); Sodium 142 mmol/L (136-145)
[2021-11-06 12:03] LABS: Alanine Aminotransferase 19 U/L (12-78); Albumin Level 4.1 g/dl (3.5-5.0); Albumin/Globulin Ratio 1.5 (1.1-1.8); Alkaline Phosphatase 67 U/L (38-126); Anion Gap 11.6 mEq/L (5-15); Aspartate Amino Transferase 32 U/L (14-36); Bilirubin,Total 0.5 mg/dl (0.2-1.3); Blood Urea Nitrogen 13 mg/dl (7-17); Calcium 9.8 mg/dl (8.4-10.2); Carbon Dioxide 30 mmol/L (22.0-30.0); Estimated Glomerular Filt Rate 84 ml/min (>60); GFR (African American) 101 ML/MIN (>60); Globulin 2.7 g/dL (1.3-3.2); Glucose 97 mg/dl (74-100); Total Protein,Serum 6.8 g/dl (6.3-8.2)
[2021-11-06 12:20] LABS: Hemoglobin A1C 5.3 % (4.0-6.0)
[2021-11-06 12:22] LABS: 25-OH Vitamin D, Total 67.3 ng/mL (30-100)
[2021-11-06 14:11] LABS: Thyroid Stimulating Hormone 1.44 uIU/mL (0.465-4.68)
== END ==
PROVIDERS: Visit Provider Family Medicine
DX: R73.01 Impaired fasting glucose (principal); E78.00 Pure hypercholesterolemia, unspecified; E55.9 Vitamin D deficiency, unspecified
CPT/HCPCS: 36415; 80053; 82306; 83036; 84443

== ENCOUNTER → 2022-07-07 10:06 | Outpatient (CLI) | payer MEDICARE, SELFPAY | PROVIDERS: PCP Family Medicine; Visit Provider Physician Assistant | DX: R55 Syncope and collapse (principal) | CPT/HCPCS: 93225; 93226 ==

== ENCOUNTER → 2022-11-19 09:13 | Outpatient (CLI) | payer MEDICARE, SELFPAY ==
--- NOTE | 2022-11-19 09:19 | MM_ITS ---
PROCEDURE INFORMATION: Exam: MG Bilateral Screening 3D Mammography Exam date and time: 11/19/2022 9:15 AM Age: 67 years old Clinical indication: Screening mammogram TECHNIQUE: Imaging protocol: Bilateral Screening tomosynthesis and 2D mammography including computer-aided detection (CAD) when performed. COMPARISON: 1. MG MM DIG SCREENING MAMM BI W/CAD 09/26/2021 9:47 AM 2. MG MM DIG SCREENING MAMM BI W/CAD 09/25/2020 8:39 AM 3. MG MM DIG SCREENING MAMM BI W/CAD 09/05/2019 9:09 AM 4. MG [facility] MM Dig screening mamm BI w/CAD 08/10/2018 8:38 AM FINDINGS: MAMMOGRAPHY: Breast composition: There are scattered areas of fibroglandular density. Mass: None. Architectural distortion: No new or suspicious architectural distortion. Calcifications: No new or suspicious calcifications are present Asymmetric density: No new or suspicious asymmetric density is present Skin thickening: None. Axillary adenopathy: None. IMPRESSION: No mammographic evidence of malignancy. Recommend annual screening mammography unless otherwise clinically indicated. ASSESSMENT: BI-RADS category 1: Negative
--- NOTE | 2022-11-19 09:20 | XR_ITS ---
FINAL REPORT TECHNIQUE: Bone densitometry calculations of the lumbar spine and each hip were obtained. CLINICAL HISTORY: post menopausal FINDINGS: DEXA BONE DENSITY AXIAL SKELETON Using L1-4, the bone mineral density of the spine is 0.871 g/cm2, corresponding to T-score of -1.6. Using the left hip, the bone mineral density of the femoral neck is 0.625 g/cm2, corresponding to a T-score of -2.6. Using the right hip, the bone mineral density of the femoral neck is 0.739 g/cm2, corresponding to a T-score of -1.7. NOTE: T-score: Standard deviation compared with peak bone mass of young adult mean. *Following the recommendations of the International Society of Bone Densitometry, classification of hip BMD is based on the lower of two T-scores; total hip or femoral neck. IMPRESSION: Diminished bone mineral density of the spine and right hip consistent with osteopenia. Diminished bone mineral density left hip consistent with osteoporosis. FRAX not reported because: Some T-score for Spine Total or hip Total or femoral neck at or below-2.5. Reviewed, Interpreted and Dictated by Earl Silva MD Transcribed by Lisa Tamayo Authenticated and . [facility]
== END ==
PROVIDERS: PCP Family Medicine; Visit Provider Family Medicine
DX: Z12.31 Encounter for screening mammogram for malignant neoplasm of breast (principal); Z78.0 Asymptomatic menopausal state; Z13.820 Encounter for screening for osteoporosis
CPT/HCPCS: 77063; 77067; 77080

== ENCOUNTER → 2023-01-07 10:38 | Outpatient (CLI) | payer MEDICARE, SELFPAY ==
--- NOTE | 2023-01-07 10:44 | CT_ITS ---
FINAL REPORT CLINICAL HISTORY: 67-year-old former smoker who quit 4 years ago. SMOKER X 40 YRS, HX UTERINE CANCER. COMPARISON: 09/26/2021 FINDINGS: Low-Dose Chest CT Axial images were obtained from the lung apex to the mid abdomen by computed tomography. Low-dose protocol was utilized. CTDI vol (mGy): 2.90 DLP (mGy-cm): 96.90 There is no axillary adenopathy. There is no hilar or mediastinal adenopathy. The heart is proper size. There is no pericardial or pleural effusion. Lung window images demonstrate no suspicious infiltrate or nodule. There is mild emphysema and mild pulmonary scarring. There are calcified granulomas in the right lung. Limited images of the upper abdomen are unremarkable. IMPRESSION: Lung RADS category 1. Recommend 12 month follow-up low-dose chest CT. Reviewed, Interpreted and Dictated by Srini Diaz III, MD Transcribed by Lisa Tamayo Authenticated and [facility]
== END ==
PROVIDERS: PCP Family Medicine; Visit Provider Family Medicine
DX: Z87.891 Personal history of nicotine dependence (principal); Z12.2 Encounter for screening for malignant neoplasm of respiratory organs
CPT/HCPCS: 71271

== ENCOUNTER 2023-03-23 17:37 | Emergency (ER) | payer MEDICARE, SELFPAY ==
[2023-03-23 17:45] VITALS: BP 138/70; PULSE 72; RESP 20; TEMP 37; O2SAT 100; BMI 27.4
--- NOTE | 2023-03-23 18:01 | EXP.UTC ---
Discharge Plan Disposition Patient Disposition: Home, Self-Care Condition: Good Prescriptions Prescriptions: New meclizine 12.5 mg tablet 12.5 mg PO TID PRN (Reason: dizziness) Qty: 10 0RF ondansetron 4 mg tablet,disintegrating 4 mg PO Q8H PRN (Reason: nausea and vomiting) Qty: 10 0RF No Action pantoprazole 40 mg tablet,delayed release (DR/EC) 40 mg PO DAILY nicotine (polacrilex) 2 mg lozenge 2 mg MUCOUS MEM Q5H PRN (Reason: nicotine cravings) Qty: 24 2RF atorvastatin 20 mg tablet 20 mg PO DAILY Qty: 90 4RF aspirin 81 MG tablet,delayed release (DR/EC) 81 mg PO HS mirabegron [Myrbetriq] 50 MG tablet extended release 24 hr 50 mg PO DAILY prednisone 10 MG tablet 10 mg PO BID 4 Days Qty: 8 0RF oseltamivir 75 MG capsule 75 mg PO BID Qty: 10 0RF ondansetron 4 MG tablet,disintegrating 4 mg PO Q8HP PRN (Reason: Nausea) Qty: 9 0RF Referrals Follow up/Referrals: Peewee Pink MD [Primary Care Provider] - See instructions Activity Restrictions/Add. Instructions Additional Instructions/Restrictions: Drink extra fluids with and between meals. If you have difficulty drinking, try very small amounts of water or suck on ice chips. ? Avoid fruit juices, as these do not replace minerals and can actually increase diarrhea. ? Children and adults can use sports drinks to replenish electrolytes. Younger children and infants should use products formulated for children, like oral rehydration solutions. ? Eat food in small amounts and let your stomach recover. ? Get lots of rest. You may feel tired or weak. ? No greasy or fried foods for the next 24-48 hours BRAT diet Bananas Rice Apples and [place] ? Make sure to drink plenty of liquids ? Return if needed ? Straight to ER if any life threatening symptoms ? Zofran as prescribed ? You was given an outpatient order for diarrhea panel, please collect specimen and bring back to outpatient lab then call back to the [facility] or follow up with family doctor for resultsFollow up with family doctor in the next 48-72 hours if no Meclizine for dizziness Clinical Impressions Clinical Impression: Nausea vomiting and diarrhea Instructions Patient Instructions: Diarrhea, Nausea and Vomiting-Adult, Ondansetron, Meclizine Discharge ED Provider: Joan Beavers [facility] [place] General Stated complaint: Diarrhea,Vomitting,light headed Mode of Arrival: Ambulatory Source of Information: Patient Limitations: No Limitations Time Seen by Provider: 03/23/23 18:01 Description of Symptoms (Recalled from Triage Doc. by RN): PATIENT C/O VOMITING, DIARRHEA, AND LIGHT-HEADED SINCE YESTERDAY MORNING HEENT Symptoms (Recalled from RN notes): No Resp Symptoms (Recalled from RN notes): No Skin Symptoms (Recalled from RN notes): No MS Symptoms (Recalled from RN notes): No Functional Status (Recalled from RN notes): WNL History of Present Illness Provider Complaint: Patient states that she has been having N/V/D since yesterday and feeling unsteady at times like she is dizzy States that she felt like the floor was spinning under her at times States that grand daughter is having same symptoms Related Data Home Medications Medication Instructions Recorded Confirmed aspirin 81 mg tablet,delayed 81 mg PO HS Blood thinner 10/05/18 03/04/19 release pantoprazole 40 mg tablet,delayed 40 mg PO DAILY GERD 01/06/19 03/04/19 release mirabegron 50 mg tablet,extended 50 mg PO DAILY . 02/28/19 03/04/19 release 24 hr (Myrbetriq) Previous Rx's Medication Instructions Recorded nicotine (polacrilex) 2 mg buccal 2 mg mucous membrane Q5H PRN 01/06/19 lozenge nicotine cravings #24 ea atorvastatin 20 mg tablet 20 mg PO DAILY Cholesterol #90 tabs 11/29/19 ondansetron 4 mg disintegrating 4 mg PO Q8HP PRN Nausea ##9 01/18/20 tablet oseltamivir 75 mg capsule 75 mg PO BID #10 caps 01/18/20 prednisone
[2023-03-23 18:25] VITALS: BP 138/70; PULSE 72; RESP 20; TEMP 37; O2SAT 100
== END 2023-03-23 18:38 | disposition home or self-care (01) ==
PROVIDERS: Emergency Provider Nurse Practitioner; PCP Family Medicine
DX: R11.2 Nausea with vomiting, unspecified (principal); R19.7 Diarrhea, unspecified; R42 Dizziness and giddiness; K21.9 Gastro-esophageal reflux disease without esophagitis; Z87.891 Personal history of nicotine dependence
CPT/HCPCS: 99204; 99212; 99214; G0463

== ENCOUNTER → 2023-07-07 08:24 | Outpatient (CLI) | payer MEDICARE, SELFPAY ==
[2023-07-07 09:23] LABS: Chloride 104 mmol/L (98-107)
[2023-07-07 09:24] LABS: Potassium 5.1 mmoL/L (3.5-5.1); Sodium 141 mmol/L (136-145)
[2023-07-07 09:26] LABS: Alanine Aminotransferase 18 U/L (12-78); Aspartate Amino Transferase 29 U/L (14-36); Blood Urea Nitrogen 16 mg/dl (7-17); Estimated Glomerular Filt Rate 71 ml/min (>60); GFR (African American) 86 ML/MIN (>60)
[2023-07-07 09:27] LABS: Albumin Level 3.8 g/dl (3.5-5.0); Albumin/Globulin Ratio 1.5 (1.1-1.8); Alkaline Phosphatase 75 U/L (38-126); Anion Gap 12.1 mEq/L (5-15); Bilirubin,Total 0.5 mg/dl (0.2-1.3); Carbon Dioxide 30 mmol/L (22.0-30.0); Chol/HDL Ratio 2.9 (1-3.5); Cholesterol 138 mg/dl (140-200); Globulin 2.6 g/dL (1.3-3.2); Glucose 93 mg/dl (74-100); Glucose,Random 93 mg/dL (74-100); HDL Cholesterol 47 mg/dl (40-60); Hemoglobin A1C 5.4 % (4.0-6.0); Total Protein,Serum 6.4 g/dl (6.3-8.2); Triglycerides 107 mg/dl (30-150); VLDL Cholesterol 21 mg/dL (0-40)
[2023-07-07 09:38] LABS: Direct LDL Cholesterol 65.81 mg/dL (100-129)
[2023-07-07 09:57] LABS: Thyroid Stimulating Hormone 1.75 uIU/mL (0.465-4.68)
== END ==
PROVIDERS: PCP Family Medicine; Visit Provider Family Medicine
DX: E78.00 Pure hypercholesterolemia, unspecified (principal); R73.01 Impaired fasting glucose; E55.9 Vitamin D deficiency, unspecified
CPT/HCPCS: 36415; 80053; 80061; 82306; 82947; 83036; 84443

== ENCOUNTER 2023-09-25 12:39 | Emergency (ER) | payer MEDICARE, SELFPAY ==
[2023-09-25 12:45] VITALS: BP 125/76; PULSE 70; RESP 20; TEMP 36.7; O2SAT 99; BMI 26.9
--- NOTE | 2023-09-25 12:49 | EXP.UTC ---
Discharge Plan Disposition Patient Disposition: Home, Self-Care Condition: Fair Prescriptions Prescriptions: New ondansetron 8 mg tablet,disintegrating 8 mg PO TID PRN (Reason: Nausea) Qty: 30 0RF No Action atorvastatin 20 mg tablet 10 mg PO HS Patient Comments: TAKE 1/2 TABLET BY MOUTH EVERY DAY alendronate 70 mg tablet 70 mg PO WEEKLY Patient Comments: TAKE ONE TABLET BY MOUTH ONCE A WEEK oxybutynin chloride 5 mg tablet extended release 24hr 5 mg PO DAILY Patient Comments: TAKE ONE TABLET BY MOUTH EVERY DAY esomeprazole magnesium 20 mg capsule,delayed release(DR/EC) 20 mg PO DAILY Patient Comments: TAKE ONE CAPSULE BY MOUTH EVERY DAY Referrals Follow up/Referrals: Peewee Pink MD [Primary Care Provider] - See instructions Activity Restrictions/Add. Instructions Additional Instructions/Restrictions: Take Zofran as needed Try Pedialyte/Liquid IV or something similar - sip small amounts slowly Return to [facility] or ER if unable to tolerate oral rehydration Clinical Impressions Clinical Impression: Nausea vomiting and diarrhea Instructions Patient Instructions: DI for Viral Gastroenteritis -- Adult Discharge ED [place] [facility] [place] General Stated complaint: nausea, vomiting, weakness, dizzy, diarrhea Time Seen by Provider: 09/25/23 13:06 History of Present Illness Provider Complaint: Started with runny nose, cough, then pounding headache, then vomiting and diarrhea. Has felt poorly for 4 days. No fever. Has had chills, aches. No appetite. Has had just a few sips to drink. No solids today. Has had urine output. Feels weak and shaky. Onset (ago): day(s) (4) Location: abdomen Relieving factors: none Exacerbating factors: none Associated symptoms: cough, headaches, loss of appetite and nausea/vomiting Treatments prior to arrival: none Related Data Home Medications Medication Instructions Recorded Confirmed alendronate 70 mg tablet 70 mg PO WEEKLY 09/25/23 09/25/23 atorvastatin 20 mg tablet 10 mg PO HS 09/25/23 09/25/23 esomeprazole magnesium 20 mg 20 mg PO DAILY 09/25/23 09/25/23 capsule,delayed release oxybutynin chloride 5 mg 5 mg PO DAILY 09/25/23 09/25/23 tablet,extended release 24 hr Previous Rx's Medication Instructions Recorded ondansetron 8 mg disintegrating 8 mg PO TID PRN Nausea #30 tabs 09/25/23 tablet Allergies Allergy/AdvReac Type Severity Reaction Status Date / Time codeine [CODEINE] Allergy Unknown NA-NAUSEA Verified 03/04/19 08:12 diphenhydramine AdvReac Unknown MAKES CRAZY Verified 03/23/23 18:33 [From BENADRYL] [facility] Disclaimer: The information contained in this section may have been updated after the patient was seen, as this information can be updated by other users. Medical History (Updated 09/25/23 @ 13:14 by PAMELLA Delgado) History of gastroesophageal reflux (GERD) Surgical History (Updated 09/25/23 @ 12:56 by Maribeth Ramirez RN) History of appendectomy History of section History of cholecystectomy History of hysterectomy History of tonsillectomy Social History Smoking Status: Former smoker tobacco type: cigarettes packs per day: 1 alcohol intake: never substance use type: denies use current occupational status: other Travel in the last 8 weeks: None household members: children housing: house caffeine: Yes ROS Obtained: Yes All systems reviewed & no additional complaints except as documented and Yes Systems reviewed as appropriate & no additional complaints except as documented Constitutional Constitutional: Reports system reviewed and no additional complaints, except as documented and Reports as per HPI ENT Ears, Nose, Mouth, and Throat: Reports system reviewed and no additional complaints, except as documented, Reports as per HPI and Reports dizziness (on and off) Cardiovascular Cardiovascular: Report
[2023-09-25 13:06] LABS: UTC Strep Screen (Rapid) Negative (Negative)
[2023-09-25 13:12] VITALS: BP 125/76; PULSE 70; RESP 20; TEMP 36.7; O2SAT 99
== END 2023-09-25 13:20 | disposition home or self-care (01) ==
PROVIDERS: Emergency Provider Physician Assistant; PCP Family Medicine
DX: R11.2 Nausea with vomiting, unspecified (principal); R19.7 Diarrhea, unspecified; R51.9 Headache, unspecified; R53.1 Weakness; R42 Dizziness and giddiness; R05.9 Cough, unspecified; R09.81 Nasal congestion; K21.9 Gastro-esophageal reflux disease without esophagitis; Z87.891 Personal history of nicotine dependence
CPT/HCPCS: 87880; 99212; 99214; G0463

== ENCOUNTER 2023-12-25 12:28 | Outpatient (CLI) | payer MEDICARE, SELFPAY ==
--- NOTE | 2023-12-25 12:35 | MM_ITS ---
PROCEDURE INFORMATION: Exam: MG Bilateral Screening 3D Mammography Exam date and time: 12/25/2023 12:50 PM Age: 68 years old Clinical indication: Screening examination TECHNIQUE: Imaging protocol: Bilateral Screening tomosynthesis and 2D mammography including computer-aided detection (CAD) when performed. COMPARISON: 1. MG MM DIG SCREENING MAMM BI W/CAD 11/19/2022 9:15 AM 2. MG MM DIG SCREENING MAMM BI W/CAD 09/26/2021 9:47 AM FINDINGS: MAMMOGRAPHY: Breast composition: There are scattered areas of fibroglandular density. Mass: None. Architectural distortion: None. Calcifications: No suspicious calcifications. Asymmetric density: None. Skin thickening: None. Axillary adenopathy: None. IMPRESSION: No mammographic evidence of malignancy. Annual screening is recommended unless otherwise clinically indicated. ASSESSMENT: BI-RADS Category 1: Negative
== END 2023-12-25 23:59 ==
LOC: RAD 12:28
PROVIDERS: PCP Family Medicine; Visit Provider Family Medicine
DX: Z12.31 Encounter for screening mammogram for malignant neoplasm of breast (principal)
CPT/HCPCS: 77063; 77067

== ENCOUNTER 2024-01-20 10:23 | Emergency (ER) | payer MEDICARE, SELFPAY ==
[2024-01-20 10:29] VITALS: BP 137/90; PULSE 90; O2SAT 98
[2024-01-20 10:30] VITALS: BP 137/96; PULSE 91; O2SAT 98
--- NOTE | 2024-01-20 10:30 | XR_ITS ---
FINAL REPORT CLINICAL HISTORY: fall, injury fall from porch last night FINDINGS: Left humerus Two views were obtained. There is a comminuted, impacted fracture of the humeral head and neck. There is no dislocation. There is mild AC joint degenerative change. IMPRESSION: Fracture as above. Reviewed, Interpreted and Dictated by Srini Diaz III, MD Transcribed by Yusra Adame Authenticated and [facility]
--- NOTE | 2024-01-20 10:30 | XR_ITS ---
FINAL REPORT CLINICAL HISTORY: fall, injury fall from porch last night FINDINGS: Left shoulder Three views were obtained. There is a comminuted, impacted fracture of the humeral head and neck. There is no dislocation. There is mild AC joint degenerative change. IMPRESSION: Fracture as above. Reviewed, Interpreted and Dictated by Srini Diaz III, MD Transcribed by Yusra Adame Authenticated and [facility]
--- NOTE | 2024-01-20 10:31 | HMH.EDGENADL ---
Discharge Plan Disposition Patient Disposition: Home, Self-Care Prescriptions Prescriptions: New hydrocodone-acetaminophen 5-325 mg tablet 1 tab PO Q6H PRN (Reason: pain) 3 Days Qty: 12 0RF No Action atorvastatin 20 mg tablet 10 mg PO HS Patient Comments: TAKE 1/2 TABLET BY MOUTH EVERY DAY alendronate 70 mg tablet 70 mg PO WEEKLY Patient Comments: TAKE ONE TABLET BY MOUTH ONCE A WEEK oxybutynin chloride 5 mg tablet extended release 24hr 5 mg PO DAILY Patient Comments: TAKE ONE TABLET BY MOUTH EVERY DAY esomeprazole magnesium 20 mg capsule,delayed release(DR/EC) 20 mg PO DAILY Patient Comments: TAKE ONE CAPSULE BY MOUTH EVERY DAY ondansetron 8 mg tablet,disintegrating 8 mg PO TID PRN (Reason: Nausea) Qty: 30 0RF Referrals Follow up/Referrals: Peewee Pink MD [Primary Care Provider] - See instructions Dk Hill DO [Staff Physician] - See instructions Activity Restrictions/Add. Instructions Additional Instructions/Restrictions: Please stay in your sling and follow-up with orthopedic surgery next available appointment. Return with any worsening symptoms. Clinical Impressions Clinical Impression: Closed fracture of neck of left humerus Discharge ED Provider: Dina Mckeon General Adult HPI General Chief complaint: Extremity Injury, Upper Stated complaint: fell 01/18 Left arm pain Time Seen by Provider: 01/20/24 10:26 History of Present Illness HPI narrative: Patient is a 68-year-old female presents today with left shoulder injury. States she fell off of her porch yesterday evening fell directly onto an abducted and internally rotated shoulder having significant pain since that time. No paresthesias decreased movement or sensation in her distal upper extremity. No injuries to her head neck spine chest abdomen pelvis. Not on anticoagulation. Related Data Home Medications Medication Instructions Recorded Confirmed alendronate 70 mg tablet 70 mg PO WEEKLY 09/25/23 09/25/23 atorvastatin 20 mg tablet 10 mg PO HS 09/25/23 09/25/23 esomeprazole magnesium 20 mg 20 mg PO DAILY 09/25/23 09/25/23 capsule,delayed release oxybutynin chloride 5 mg 5 mg PO DAILY 09/25/23 09/25/23 tablet,extended release 24 hr Previous Rx's Medication Instructions Recorded ondansetron 8 mg disintegrating 8 mg PO TID PRN Nausea #30 tabs 09/25/23 tablet hydrocodone 5 mg-acetaminophen 325 1 tab PO Q6H PRN pain 3 days #12 01/20/24 mg tablet tabs Allergies Allergy/AdvReac Type Severity Reaction Status Date / Time codeine [CODEINE] Allergy Unknown NA-NAUSEA Verified 01/20/24 10:45 diphenhydramine AdvReac Unknown MAKES CRAZY Verified 01/20/24 10:45 [From BENADRYL] [facility] Disclaimer: The information contained in this section may have been updated after the patient was seen, as this information can be updated by other users. Medical History (Updated 01/20/24 @ 11:00 by Dina Mckeon MD) History of gastroesophageal reflux (GERD) Surgical History (Updated 09/25/23 @ 12:56 by Maribeth Ramirez RN) History of tonsillectomy History of hysterectomy History of section History of cholecystectomy History of appendectomy Social History Smoking Status: Never smoker alcohol intake: never substance use type: denies use current occupational status: other Travel in the last 8 weeks: None household members: children housing: house caffeine: Yes ROS Obtained: Yes All systems reviewed & no additional complaints except as documented Physical Exam General General appearance: alert Respiratory Respiratory exam: Present normal lung sounds bilaterally Cardiovascular Cardiovascular exam: Present regular rate Extremities Exam Extremities exam: Present other (Shoulder is internally rotated and abducted she has tenderness over the anterior shoulder joint itself no significant soft tissue swelling also some tenderness in the proximal humerus otherwise the distal exam is normal from a motor and sensory standpoint also normal pulses) Neurological Exam Neurological exam: Present alert and oriented X3 Medical Decision Making Francis Inquiry Pt receiving controlled substance: Yes Francis was queried for this patient: Yes Risks and benefits of using a controlled substance: were discussed with pt by me Vital Signs: 01/20/24 10:33 Temperature 97.9 F Temperature Source Oral Pulse Rate [Left] 92 H Respiratory Rate 16 Blood Pressure [Right Arm] 137/90 Blood Pressure Mean [Right Arm] 105 02 Sat by Pulse Oximetry 98 Oxygen Delivery Method Room Air Orders (Tests/Meds): ED MEDICATIONS Discontinued Medications Generic Name Dose Route Start Last Admin Trade Name Freq PRN Reason Stop Dose Admin Hydrocodone Bitart/Acetaminophen 1 tab 01/20/24 10:30 01/20/24 10:37 Hydrocodone/Apap 5/325 Mg Tablet PO 01/20/24 10:31 1 tab ONCE ONE Administration ORDERS Category Date Time Status Humerus XR left [XR humerus LT] Stat Exams 01/20/24 10:30 Taken Shoulder XR left minimum 2 views [XR shoulder LT min 2V Exams 01/20/24 10:30 Taken ] Stat Medical Decision Narrative: 68-year-old female presented with left shoulder injury differential includes shoulder dislocation separation fracture soft tissue contusion humeral injury etc. Plain film of the shoulder and humerus are pending dose of [place] has been given and will reassess. X-ray performed which I first interpreted shows a left humeral neck fracture She was placed in a sling for definitive fracture care. She will follow-up with orthopedic surgery. She is neurovascular intact. Pain medication sent to her pharmacy she was discharged in stable condition. Procedures Orthopedic Splinting/Casting Injury #1: Side: left Upper Extremity Injury Location: shoulder Upper Extremity Immobilizer: sling/shoulder immobilizer Post Cast/Splinting Neuro Status: intact Post Cast/Splinting Vasc Status: intact Critical Care Critical Care Time Critical Care Time: No
[2024-01-20 10:33] VITALS: BP 137/90; PULSE 92; RESP 16; TEMP 36.6; O2SAT 98; BMI 28.3
[2024-01-20] MEDS: HYDROCODONE/APAP 5/325 MG TABLET 1 TAB PO (10:37)
--- NOTE | 2024-01-20 11:00 | PC.NURSE ---
sling was placed on pts left arm
[2024-01-20 11:08] VITALS: BP 132/91; PULSE 88; RESP 16; TEMP 36.6
--- NOTE | 2024-02-01 23:01 | PC.NURSE ---
Chart accessed for ortho paperwork
== END 2024-01-20 11:10 | disposition home or self-care (01) ==
PROVIDERS: Emergency Provider Student in an Organized Health Care Education/Training Program; PCP Family Medicine
DX: S42.212A Unspecified displaced fracture of surgical neck of left humerus, initial encounter for closed fracture (principal); M25.512 Pain in left shoulder; K21.9 Gastro-esophageal reflux disease without esophagitis; W17.89XA Other fall from one level to another, initial encounter
CPT/HCPCS: 73030; 73060; 99283

== ENCOUNTER 2024-02-11 09:46 | Outpatient (CLI) | payer MEDICARE, SELFPAY ==
--- NOTE | 2024-02-11 09:49 | XR_ITS ---
FINAL REPORT CLINICAL HISTORY: Lt Shoulder 3 week f/u for fracture FINDINGS: Left shoulder Two views were obtained. There is a comminuted, moderately displaced fracture through the surgical neck of the humerus. It is moderately impacted. There is widening of the subacromial space, probably due to joint effusion. There is inferior subluxation of the humeral head relative to the bony glenoid. IMPRESSION: Fracture as above. Reviewed, Interpreted and Dictated by Arden Franco MD Transcribed by Yusra Adame Authenticated and [facility]
== END 2024-02-11 23:59 ==
LOC: RAD 09:47
PROVIDERS: PCP Family Medicine; Visit Provider Orthopaedic Surgery
DX: S42.212A Unspecified displaced fracture of surgical neck of left humerus, initial encounter for closed fracture (principal)
CPT/HCPCS: 73030

== ENCOUNTER 2024-03-03 09:22 | Outpatient (CLI) | payer MEDICARE, SELFPAY ==
--- NOTE | 2024-03-03 09:32 | XR_ITS ---
FINAL REPORT CLINICAL HISTORY: Left Shoulder fx COMPARISON: 02/11/2024 FINDINGS: Left shoulder Three views were obtained. Again identified is a mildly impacted fracture of the surgical neck of the humerus. There is persistent inferior subluxation of the humeral head relative to the bony glenoid. Subacromial space measures approximately 2.5 cm. Overall there has been some interval healing but findings are stable. IMPRESSION: Interval healing of the mildly impacted fracture of the surgical neck of the humerus. Reviewed, Interpreted and Dictated by Arden Franco MD Transcribed by Yusra Adame Authenticated and [facility]
== END 2024-03-03 23:59 ==
LOC: RAD 09:24
PROVIDERS: PCP Family Medicine; Visit Provider Orthopaedic Surgery
DX: M25.512 Pain in left shoulder (principal); S42.212D Unspecified displaced fracture of surgical neck of left humerus, subsequent encounter for fracture with routine healing
CPT/HCPCS: 73030

== ENCOUNTER 2024-03-31 09:41 | Outpatient (CLI) | payer MEDICARE, SELFPAY ==
--- NOTE | 2024-03-31 09:46 | XR_ITS ---
FINAL REPORT CLINICAL HISTORY: lt shoulder pain COMPARISON: 03/03/2024 FINDINGS: LEFT SHOULDER: 3 views of the left shoulder were obtained. There is a subacute impacted fracture of the surgical neck of the proximal humerus. There is medial rotation of the fracture fragment, stable in appearance since the prior films of February. The inferior subluxation of the proximal humerus is partially improved since the prior exam. Mild degenerative changes present. There is no soft tissue abnormality. IMPRESSION: Subacute impacted fracture of the surgical neck of the proximal humerus, with partial improvement of the inferior subluxation of the proximal humerus since the prior exam. Reviewed, Interpreted and Dictated by Srini Diaz III, MD Transcribed by Flora Chavez Authenticated and . [facility]
== END 2024-03-31 23:59 | disposition home or self-care (01) ==
PROVIDERS: PCP Family Medicine; Visit Provider Orthopaedic Surgery
DX: M25.512 Pain in left shoulder (principal); S42.212D Unspecified displaced fracture of surgical neck of left humerus, subsequent encounter for fracture with routine healing
CPT/HCPCS: 73030

== ENCOUNTER 2024-05-12 09:57 | Outpatient (CLI) | payer MEDICARE, SELFPAY ==
--- NOTE | 2024-05-12 10:01 | XR_ITS ---
FINAL REPORT CLINICAL HISTORY: left shoulder fx FINDINGS: Two views show a left femoral neck fracture with impaction and angulation. This appears acute or even chronic however there lack of bony union if this is a chronic injury. There are mild degenerative changes. IMPRESSION: Age indeterminate humeral neck fracture without bony union. Reviewed, Interpreted and Dictated by Earl Silva MD Transcribed by Yusra Adame Authenticated and . [facility]
== END 2024-05-12 23:59 | disposition home or self-care (01) ==
LOC: RAD 09:59
PROVIDERS: PCP Family Medicine; Visit Provider Orthopaedic Surgery
DX: M79.622 Pain in left upper arm; S42.212D Unspecified displaced fracture of surgical neck of left humerus, subsequent encounter for fracture with routine healing
CPT/HCPCS: 73030

== ENCOUNTER 2024-06-09 14:00 | Outpatient (RCR) | payer MEDICARE, SELFPAY ==
--- NOTE | 2024-04-04 09:02 | HMH.OTOPEV ---
OT Inpatient Evaluation Rehab OT Outpatient Eval Start: 04/04/24 08:44 Freq: Status: Active Protocol: Document 04/04/24 08:44 GILBERTOYULIANA (Rec: 04/04/24 08:58 STEPHSHAHID [id number]) E-signed By Jessica Corral, OT Outpatient Therapy Subjective History Subjective History 69 year old female referred to skilled OP OT services for s/ p left proximal fx on January 19 2024. Patient is currently 11 weeks out from initial injury. Patient reported she does not want surgery and will attend therapy 2x/wk for the next 30 days in order to improve AAROM,AROM, strengthening and modalities to decrease pain. New diagnosis of cancer in past 12 No months? Chief Complaint Pain,Weakness,Decreased Qa Auditor Strength Symptom Type Ache,Throb Symptoms Relieved By Nothing Symptoms Aggravated By Physical Activity Prior Functional Limitations None Current Functional Limitations Reaching,Lifting,Recreation Activity Symptom Description Constant and Continuous Level of pain today (0-10) 4 Pain scale - at its best (0-10) 4 Pain scale - at its worst (0-10) 8 Shoulder/Elbow Eval Shoulder Objective Measurements Shoulder ROM Left Shoulder Abduction Active Range of 82 Motion (degrees) Shoulder Flexion Active Range of Motion 60 (degrees) Query Text: Shoulder External Rotation Active Range 40 of Motion (degrees) Shoulder Internal Rotation Active Range 30 of Motion (degrees) pain with active ROM shoulder exam left standard Shoulder MMT Shoulder Abduction Strength Grade 2+ Poor+ Shoulder Extension Strength Grade 2+ Poor+ Shoulder Horizontal Abduction Strength 2+ Poor+ Grade Infraspinatus/Teres Minor Strength Grade 2+ Poor+ Shoulder External Rotation Strength 2+ Poor+ Grade Shoulder Internal Rotation Strength 2+ Poor+ Grade Elbow Objective Measurements QuickDASH Activities Please rate your ability to do the following activities in the last week by selecting the number below the appropriate response. 1. Open a tight or new jar. Unable 2. Do heavy entertainment & media correspondent (e.g., wash Severe difficulty coyle, floors). 3. Carry a shopping bag or briefcase. Moderate difficulty 4. Wash your back. Unable 5. Use a knife to cut food. Moderate difficulty 6. Recreational activities in which you Unable take some force or impact through your arm, shoulder, or hand (e.g., golf, hammering, tennis, etc.). 7. During the past week, to what extent Slightly has your arm, shoulder or hand problem interfered with your normal social activities with family, friends, neighbors or groups? 8. During the past week, were you Moderately limited limited in your work or other regular daily activites as a result of your arm, shoulder or hand problem? 9. Arm, shoulder or hand pain. Moderate 10. Tingling (pins and needles) in your None arm, shoulder or hand. 11. During the past week, how much Moderate difficulty difficulty have you had sleeping because of the pain in your arm, shoulder or hand? Quick DASH 37 OT Outpatient Assessment Impairments Problems/Impairments Impaired Range of Motion, Impaired Strength,Subjective C /O Pain Prognosis Rehab Potential Good Short Term Goals Number of Weeks 2 Increase Range of Motion Yes: Improve AROM of LUE shld flex: 80; abd: 90; er:50; ir: 40 Increase Strength Yes: Improve L UE shld strength to 2+ to 3-/5 throughout Decrease Subjective C/O Pain Yes: 6/10 pain at worst Patient to be Ind w/ HEP Yes: AAROM Patient to be Ind w/ Advanced HEP Yes: Strengthening Improve Quick Dash Score Yes: 32 Nursing Home Goals Number of Weeks 4 Increase Range of Motion Yes: Improve AROM of LUE shld flex: 110; abd: 120; er:60; ir :50 Increase Strength Yes: Improve L UE shld strength to 3-/5 to 3/5 throughout Decrease Subjective C/O Pain Yes: 5/10 pain at worst Patient to be Ind w/ HEP Yes: AROM Patient to be Ind w/ Advanced HEP Yes: Advance strengthening Improve Quick Dash Score Yes: 28 Outpatient Therapy Plan of Care Treatment Plan May Include Therapeutic Exercise Including Home Yes Exercise Program Manual Therapy Techniques Yes Therapeutic Activities to Return to Yes Previous Functional/Work Level Thermal Modalities Yes Electrical Stimulation Yes Ultrasound/Phonophoresis Yes Iontophoresis Yes Eval/Re-Eval Yes Aquatic Therapy Yes Frequency Times per week 2x/wk Duration Number of Weeks 4 weeks Addendums This patient is a candidate for social No or vocational rehab? Patient/Guardian verbally acknowledges Yes understanding of treatment program and consents to further treatment? Patient/Guardian verbally acknowledges Yes understanding of diagnosis, prognosis and goals for treatment? Eval Complexity OT Charge [id number] - Low Complexity PHYSICIAN CERTIFICATION: I certify the specified therapy services for Pooja Presley are required, authorized, and reviewed every 30 days.
== END 2024-06-09 14:05 | disposition home or self-care (01) ==
LOC: OT 14:00
PROVIDERS: Visit Provider Orthopaedic Surgery
DX: M79.622 Pain in left upper arm (principal)
CPT/HCPCS: 97010; 97014; 97035; 97110; 97140; 97164; 97165; 97530; G0283

== ENCOUNTER 2024-07-06 12:11 | Outpatient (CLI) | payer MEDICARE, SELFPAY | END 2024-07-06 23:59 | disposition home or self-care (01) | LOC: RT 12:12 | PROVIDERS: PCP Family Medicine; Visit Provider Family Medicine | DX: R42 Dizziness and giddiness (principal) | CPT/HCPCS: 93270 ==

== ENCOUNTER 2025-02-02 09:08 | Outpatient (CLI) | payer MEDICARE, SELFPAY ==
--- NOTE | 2025-02-02 09:10 | XR_ITS ---
FINAL REPORT TECHNIQUE: Bone densitometry calculations of the lumbar spine and bilateral hips were obtained. CLINICAL HISTORY: SCREENING COMPARISON: 11/19/2022 FINDINGS: Using L1-4, the bone mineral density of the spine is 0.900 g/cm2, corresponding to T-score of -1.3. Using the left hip, the bone mineral density of the femoral neck is 0.598 g/cm2, corresponding to a T-score of -2.8. Using the right hip, the bone mineral density of the femoral neck is 0.615 g/cm?, corresponding to a T-score of -2.1 NOTE: T-score: Standard deviation compared with peak bone mass of young adult mean. *Following the recommendations of the International Society of Bone densitometry, classification of hip BMD is based on the lower of two T-scores; total hip or femoral neck. IMPRESSION: Diminished bone mineral density of the left hip consistent with osteoporosis. Diminished bone mineral density of the right hip and lumbar spine consistent with osteopenia. Reviewed, Interpreted and Dictated by Earl Silva MD Transcribed by Flora Chavez Authenticated and [facility]
--- NOTE | 2025-02-02 09:10 | MM_ITS ---
PROCEDURE INFORMATION: Exam: MG Bilateral Screening 3D Mammography Exam date and time: 02/02/2025 9:44 AM Age: 70 years old Clinical indication: Screening examination TECHNIQUE: Imaging protocol: Bilateral Screening tomosynthesis and 2D mammography including computer-aided detection (CAD) when performed. COMPARISON: 1. MG MM DIG SCREENING MAMM BI W/CAD 12/25/2023 12:50 PM 2. MG MM DIG SCREENING MAMM BI W/CAD 11/19/2022 9:15 AM FINDINGS: MAMMOGRAPHY: Breast composition: There are scattered areas of fibroglandular density. Mass: None. Architectural distortion: None. Calcifications: No suspicious calcifications. Asymmetric density: None. Skin thickening: None. Axillary adenopathy: None. IMPRESSION: No mammographic evidence of malignancy. Annual screening is recommended unless otherwise clinically indicated. ASSESSMENT: BI-RADS Category 1: Negative.
== END 2025-02-02 23:59 | disposition home or self-care (01) ==
LOC: RAD 09:08
PROVIDERS: PCP Family Medicine; Visit Provider Family Medicine
DX: Z12.31 Encounter for screening mammogram for malignant neoplasm of breast (principal); M85.88 Other specified disorders of bone density and structure, other site; Z13.820 Encounter for screening for osteoporosis
CPT/HCPCS: 77063; 77067; 77080